=== PATIENT | male | born 1950 | race Caucasian/White ===

== ENCOUNTER 2017-05-17 16:22 | Inpatient (IN) | payer BC ==
[~2017-05-17] VITALS: Ht 188 cm; Wt 86.2 kg
[~2017-05-17 16:22] MED LIST: ATOR-24 PO; POTA1080 PO
[2017-05-17] MEDS ORDERED: ONDANSETRON INJ 2 MG/ML 2 ML VIAL IV STA ×2 (16:47→19:09)
[2017-05-17] MEDS ORDERED: SODIUM CHLORIDE 0.9% 1000ML 1,000 ML IV ONE (17:00)
[2017-05-17] MEDS: HYDROmorphone INJ 0.5 MG/0.5 ML SYR IV PRN ×3 (17:01→19:05)
--- NOTE | 2017-05-17 17:04 | EMERGENCY ROOM VISIT NOTE ---
History First contact with patient: 16:34 Chief Complaint: KIDNEY STONE Stated Complaint: KIDNEY STONE History of Present Illness The patient is a 67 year old male who presents to the Emergency Room with complaints of left flank pain that started today. The patient also notes the following associated symptoms, nausea and vomiting. This started today and is a 10/10. The patient has found no relieving factors. Tried oxycodone. History of kidney stones. Pt denies LOC, headache, fevers, chills, diaphoresis, visual changes, neck pain, chest pain, breathing difficulties, back pain, melena, hematochezia, urinary symptoms, numbness, weakness, lymphadenopathy, rash, or other complaints. Review of Systems See HPI for pertinent positives and negatives. A total of ten systems were reviewed and were otherwise negative. Past Medical/Surgical History Medical Problems: (1) Dyslipidemia Family History Cancer Diabetes mellitus Social History Smoking Status: Never Smoker Alcohol Use: occasionally Marital Status: Housing Status: lives with significant other Occupation Status: employed Current/Historical Medications Scheduled Atorvastatin (Lipitor), 40 MG PO DAILY Oxybutynin Chloride (Oxybutynin Chloride ER), 10 MG PO DIRECTED Potassium Citrate (Alkalinizer (Potassium Citrate ER), 1 TAB PO QID Physical Exam Vital Signs Date Time Temp Pulse Resp B/P (MAP) Pulse Ox O2 Delivery O2 Flow Rate FiO2 05/17/17 18:32 60 05/17/17 18:13 60 18 125/69 96 Room Air 05/17/17 16:27 36.5 88 19 137/80 97 Room Air Physical Exam GENERAL: Awake, alert, uncomfortable, in no distress HENT: Normocephalic, atraumatic. Oropharynx unremarkable. EYES: Normal conjunctiva. Sclera non-icteric. NECK: Supple. No nuchal rigidity. FROM. No JVD. RESPIRATORY: Clear to auscultation. CARDIAC: Regular rate, normal rhythm. Extremities warm and well perfused. Pulses equal. ABDOMEN: Soft, non-distended. Flank tenderness to palpation. No rebound or guarding. No masses. RECTAL: Deferred. MUSCULOSKELETAL: Chest examination reveals no tenderness. The back is symmetrical on inspection without obvious abnormality. There is no CVA tenderness to palpation. No joint edema. LOWER EXTREMITIES: Calves are equal size bilaterally and non-tender. No edema. No discoloration. NEURO: Normal sensorium. No sensory or motor deficits noted. SKIN: No rash or jaundice noted. Medical Decision & Procedures Laboratory Results 05/17/17 16:55 Red Blood Count 5.58, Mean Corpuscular Volume 85.3, Mean Corpuscular Hemoglobin 30.5, Mean Corpuscular Hemoglobin Concent 35.7, Mean Platelet Volume 10.0, Neutrophils (%) (Auto) 81.4, Lymphocytes (%) (Auto) 11.1, Monocytes (%) (Auto) 5.6, Eosinophils (%) (Auto) 1.3, Basophils (%) (Auto) 0.3, Neutrophils # (Auto) 7.53, Lymphocytes # (Auto) 1.03, Monocytes # (Auto) 0.52, Eosinophils # (Auto) 0.12, Basophils # (Auto) 0.03 05/17/17 16:55 Test 05/17/17 16:55 05/17/17 17:30 White Blood Count 9.26 K/uL (4.8-10.8) Red Blood Count 5.58 M/uL (4.7-6.1) Hemoglobin 17.0 g/dL (14.0-18.0) Hematocrit 47.6 % (42-52) Mean Corpuscular Volume 85.3 fL (80-100) Mean Corpuscular Hemoglobin 30.5 pg (25-34) Mean Corpuscular Hemoglobin Concent 35.7 g/dl (32-36) Platelet Count 190 K/uL (130-400) Mean Platelet Volume 10.0 fL (7.4-10.4) Neutrophils (%) (Auto) 81.4 % Lymphocytes (%) (Auto) 11.1 % Monocytes (%) (Auto) 5.6 % Eosinophils (%) (Auto) 1.3 % Basophils (%) (Auto) 0.3 % Neutrophils # (Auto) 7.53 K/uL (1.4-6.5) Lymphocytes # (Auto) 1.03 K/uL (1.2-3.4) Monocytes # (Auto) 0.52 K/uL (0.11-0.59) Eosinophils # (Auto) 0.12 K/uL (0-0.5) Basophils # (Auto) 0.03 K/uL (0-0.2) RDW Standard Deviation 42.2 fL (36.4-46.3) RDW Coefficient of Variation 13.5 % (11.5-14.5) Immature Granulocyte % (Auto) 0.3 % Immature Granulocyte # (Auto) 0.03 K/uL (0.00-0.02) Anion Gap 8.0 mmol/L (3-11) Est Creatinine Clear Calc Drug Dose 68.3 ml/min Estimated GFR () 68.7 Estimated GFR (Non- 59.3 BUN/Creatinine Ratio 10.9 (10-20) Calcium Level 9.2 mg/dl (8.5-10.1) Total Bilirubin 1.1 mg/dl (0.2-1) Direct Bilirubin mg/dl (0-0.2) Aspartate Amino Transf (AST/SGOT) U/L (15-37) Alanine Aminotransferase (ALT/SGPT) 35 U/L (12-78) Alkaline Phosphatase 111 U/L (45-117) Total Protein 8.0 gm/dl (6.4-8.2) Albumin 4.1 gm/dl (3.4-5.0) Lipase 191 U/L (73-393) Urine Color YELLOW Urine Appearance CLEAR (CLEAR) Urine pH >= 9.0 (4.5-7.5) Urine Specific [place] 1.012 (1.000-1.030) Urine Protein NEG (NEG) Urine Glucose (UA) NEG (NEG) Urine Ketones NEG (NEG) Urine Occult Blood 1+ (NEG) Urine Nitrite NEG (NEG) Urine Bilirubin NEG (NEG) Urine Urobilinogen NEG (NEG) Urine Leukocyte Esterase LARGE (NEG) Urine WBC (Auto) >30 /hpf (0-5) Urine RBC (Auto) 5-10 /hpf (0-4) Urine Hyaline Casts (Auto) 5-10 /lpf (0-5) Urine Epithelial Cells (Auto) 0-5 /lpf (0-5) Urine Bacteria (Auto) 4+ (NEG) Medications Administered Medications (Trade) Dose Ordered Sig/Lauren Route Start Time Stop Time Status Last Admin Dose Admin Sodium Chloride 1,000 ml @ 999 mls/hr Q1H1M ONCE IV 05/17/17 17:00 05/17/17 18:00 DC 05/17/17 17:01 999 MLS/HR Hydromorphone HCl (Dilaudid Inj) 0.5 mg Q30M PRN IV 05/17/17 17:00 05/31/17 16:59 05/17/17 19:05 0.5 MG Ondansetron HCl (Zofran Inj) 4 mg NOW STAT IV 05/17/17 16:47 05/17/17 16:54 DC 05/17/17 17:00 4 MG Piperacillin Sod/ Tazobactam Sod (Zosyn Iv) 4.5 gm NOW STAT IV 05/17/17 18:17 05/17/17 18:18 DC 05/17/17 19:05 4.5 GM Medical Decision Triage Nursing notes reviewed. The patient's presentation and history were concerning for flank pain. Etiologies such as renal colic, appendicitis, diverticulitis, mesenteric ischemia, aortic pathology, infections, inflammatory bowel disease, PUD, biliary pathology, UTI, as well as others were entertained. The patient was evaluated. He was uncomfortable. He was treated with IV Dilaudid and Zofran. CT imaging was performed. Blood work was performed. The patient unfortunate has a significant left sided kidney stone that will not pass. His urinalysis is very concerning for infection. He required 3 doses of Dilaudid and additional dose of Zofran. Consultation was made with Dr. Woodward of urology who plans to take the patient to the OR. I did consult with the [facility] hospitalist service and spoke to Liana Aguilera PA-C. The patient will be evaluated for further management. I did give the patient a dose of IV Zosyn. The patient was seen and examined with Dr. Davis, resident physician. We discussed the case and treatments ordered, reviewed the results, and determine the disposition. Please refer to the resident's note for additional details. I have been directly involved with the management and disposition as well as independently evaluated the patient as documented in this note. Medication Reconcilliation Current Medication List: was personally reviewed by me Blood Pressure Screening Blood pressure disposition: Elevated BP felt to be situational Impression Primary Impression: Ureterolithiasis Additional Impression: UTI (urinary tract infection) Departure Information Dispostion Being Evaluated By Hospitalist Referrals No Doctor, Assigned (PCP) Patient Instructions My [facility] Problem Qualifiers Additional Impression: UTI (urinary tract infection) Urinary tract infection type: site unspecified
[2017-05-17] MEDS ORDERED: DTRSR/10 PO (17:07)
[2017-05-17 17:10] LABS: BASO % 0.3 %; BASO ABS # 0.03 K/uL (0-0.2); EOS % 1.3 %; EOS ABS # 0.12 K/uL (0-0.5); HEMATOCRIT 47.6 % (42-52); IG# 0.03 K/uL (0.00-0.02); LYMPH % 11.1 %; LYMPH ABS # 1.03 K/uL (1.2-3.4); MEAN CELL VOLUME 85.3 fL (80-100); MEAN CORPUSCULAR HEMOGLOBIN 30.5 pg (25-34); MEAN CORPUSCULAR HGB CONC 35.7 g/dl (32-36); MONO % 5.6 %; MONO ABS # 0.52 K/uL (0.11-0.59); NEUT % 81.4 %; NEUT ABS # 7.53 K/uL (1.4-6.5); PLATELET COUNT 190 K/uL (130-400); RED CELL DISTRIBUTION WIDTH CV 13.5 % (11.5-14.5); RED CELL DISTRIBUTION WIDTH SD 42.2 fL (36.4-46.3); WHITE BLOOD COUNT 9.26 K/uL (4.8-10.8)
--- NOTE | 2017-05-17 17:22 | EMERGENCY ROOM VISIT NOTE ---
History First contact with patient: 16:34 Chief Complaint: KIDNEY STONE Stated Complaint: KIDNEY STONE History of Present Illness The patient is a 66 year old male who presents to the Emergency Room with complaints of left flank pain since 1230 today, took an oxycodone and did not help pain. Has a h/o kidney stones in 2012, prostatectomy in 2016, seen by urology regularly and is on potassium citrate for his stones. Also states he had a LT flank pain episode on Sunday, but after walking around for three hours, pain resolved. Denies fevers chills nausea diarrhea dysuria hematuria constipation. Review of Systems as above Past Medical/Surgical History Medical Problems: (1) Dyslipidemia Family History Cancer Diabetes mellitus Social History Smoking Status: Never Smoker Alcohol Use: occasionally Marital Status: Housing Status: lives with significant other Occupation Status: employed Current/Historical Medications Scheduled Atorvastatin (Lipitor), 40 MG PO DAILY Oxybutynin Chloride (Oxybutynin Chloride ER), 10 MG PO DIRECTED Potassium Citrate (Alkalinizer (Potassium Citrate ER), 1 TAB PO QID Physical Exam Vital Signs Date Time Temp Pulse Resp B/P (MAP) Pulse Ox O2 Delivery O2 Flow Rate FiO2 05/17/17 18:32 60 05/17/17 18:13 60 18 125/69 96 Room Air 05/17/17 16:27 36.5 88 19 137/80 97 Room Air Physical Exam as below General Appearance: WD/WN, + moderate distress (uncomfortable) Respiratory/Chest: lungs clear, normal breath sounds, no respiratory distress Cardiovascular: regular rate, rhythm, no gallop Abdomen / GI: soft, + pertinent finding (tender to palpation on left flank) Extremities: normal inspection, no pedal edema Neurologic/Psych: alert, normal mood/affect Medical Decision & Procedures Laboratory Results 05/17/17 16:55 Red Blood Count 5.58, Mean Corpuscular Volume 85.3, Mean Corpuscular Hemoglobin 30.5, Mean Corpuscular Hemoglobin Concent 35.7, Mean Platelet Volume 10.0, Neutrophils (%) (Auto) 81.4, Lymphocytes (%) (Auto) 11.1, Monocytes (%) (Auto) 5.6, Eosinophils (%) (Auto) 1.3, Basophils (%) (Auto) 0.3, Neutrophils # (Auto) 7.53, Lymphocytes # (Auto) 1.03, Monocytes # (Auto) 0.52, Eosinophils # (Auto) 0.12, Basophils # (Auto) 0.03 05/17/17 16:55 Test 05/17/17 16:55 05/17/17 17:30 White Blood Count 9.26 K/uL (4.8-10.8) Red Blood Count 5.58 M/uL (4.7-6.1) Hemoglobin 17.0 g/dL (14.0-18.0) Hematocrit 47.6 % (42-52) Mean Corpuscular Volume 85.3 fL (80-100) Mean Corpuscular Hemoglobin 30.5 pg (25-34) Mean Corpuscular Hemoglobin Concent 35.7 g/dl (32-36) Platelet Count 190 K/uL (130-400) Mean Platelet Volume 10.0 fL (7.4-10.4) Neutrophils (%) (Auto) 81.4 % Lymphocytes (%) (Auto) 11.1 % Monocytes (%) (Auto) 5.6 % Eosinophils (%) (Auto) 1.3 % Basophils (%) (Auto) 0.3 % Neutrophils # (Auto) 7.53 K/uL (1.4-6.5) Lymphocytes # (Auto) 1.03 K/uL (1.2-3.4) Monocytes # (Auto) 0.52 K/uL (0.11-0.59) Eosinophils # (Auto) 0.12 K/uL (0-0.5) Basophils # (Auto) 0.03 K/uL (0-0.2) RDW Standard Deviation 42.2 fL (36.4-46.3) RDW Coefficient of Variation 13.5 % (11.5-14.5) Immature Granulocyte % (Auto) 0.3 % Immature Granulocyte # (Auto) 0.03 K/uL (0.00-0.02) Anion Gap 8.0 mmol/L (3-11) Est Creatinine Clear Calc Drug Dose 68.3 ml/min Estimated GFR () 68.7 Estimated GFR (Non- 59.3 BUN/Creatinine Ratio 10.9 (10-20) Calcium Level 9.2 mg/dl (8.5-10.1) Total Bilirubin 1.1 mg/dl (0.2-1) Direct Bilirubin mg/dl (0-0.2) Aspartate Amino Transf (AST/SGOT) U/L (15-37) Alanine Aminotransferase (ALT/SGPT) 35 U/L (12-78) Alkaline Phosphatase 111 U/L (45-117) Total Protein 8.0 gm/dl (6.4-8.2) Albumin 4.1 gm/dl (3.4-5.0) Lipase 191 U/L (73-393) Urine Color YELLOW Urine Appearance CLEAR (CLEAR) Urine pH >= 9.0 (4.5-7.5) Urine Specific [place] 1.012 (1.000-1.030) Urine Protein NEG (NEG) Urine Glucose (UA) NEG (NEG) Urine Ketones NEG (NEG) Urine Occult Blood 1+ (NEG) Urine Nitrite NEG (NEG) Urine Bilirubin NEG (NEG) Urine Urobilinogen NEG (NEG) Urine Leukocyte Esterase LARGE (NEG) Urine WBC (Auto) >30 /hpf (0-5) Urine RBC (Auto) 5-10 /hpf (0-4) Urine Hyaline Casts (Auto) 5-10 /lpf (0-5) Urine Epithelial Cells (Auto) 0-5 /lpf (0-5) Urine Bacteria (Auto) 4+ (NEG) Medications Administered Medications (Trade) Dose Ordered Sig/Lauren Route Start Time Stop Time Status Last Admin Dose Admin Sodium Chloride 1,000 ml @ 999 mls/hr Q1H1M ONCE IV 05/17/17 17:00 05/17/17 18:00 DC 05/17/17 17:01 999 MLS/HR Hydromorphone HCl (Dilaudid Inj) 0.5 mg Q30M PRN IV 05/17/17 17:00 05/31/17 16:59 05/17/17 19:05 0.5 MG Ondansetron HCl (Zofran Inj) 4 mg NOW STAT IV 05/17/17 16:47 05/17/17 16:54 DC 05/17/17 17:00 4 MG Piperacillin Sod/ Tazobactam Sod (Zosyn Iv) 4.5 gm NOW STAT IV 05/17/17 18:17 05/17/17 18:18 DC 05/17/17 19:05 4.5 GM ED Course 1635 resident reviewed records, assessed patient [address] stone study, dilaudid .5mcg IV q30m prn pain, zofran 4mg IV, 1L NSS @ 999ml/hr. 1700 attending saw pt, discussed plan. 1750 UA + leuks. Dec made to admit. Pt is Brandan. [address] Woodward-she says she will stent tonight at 2130 (8 hours post last meal), says she will see him at about 2000 to get consent. Medical Decision The patient is a 66 year old male who presents to the Emergency Room with complaints of left flank pain since 1230 today, took an oxycodone and did not help pain. Has a h/o kidney stones in 2012, prostatectomy in 2016, seen by urology regularly and is on potassium citrate for his stones. Also states he had a LT flank pain episode on Sunday, but after walking around for three hours, pain resolved. CT scan confirms 10x10 left sided kidney stone, UA is concerning for infection. Required [address] Woodward consulted, she would like to stent him tonight given status. IV zosyn started here. Admitted for further work up. Ddx: gastritis, nephrolithiasis, splenic rupture, diverticulitis Impression Primary Impression: Nephrolithiasis Additional Impression: UTI (urinary tract infection) Departure Information Dispostion Admitted as an inpatient Patient Instructions My [facility] Resident Tracking Resident Involvement: Resident Care Provided Care Provided: Adult ED Problem Qualifiers Additional Impression: UTI (urinary tract infection) Urinary tract infection type: site unspecified
[2017-05-17 17:49] LABS: ALBUMIN 4.1 gm/dl (3.4-5.0); CALCIUM 9.2 mg/dl (8.5-10.1); CREATININE 1.27 mg/dl (0.60-1.40)
--- NOTE | 2017-05-17 18:02 | DIAGNOSTIC IMAGING REPORT ---
CT OF THE ABDOMEN AND PELVIS WITHOUT CONTRAST, STONE PROTOCOL CLINICAL HISTORY: Left flank pain. COMPARISON STUDY: CT of the abdomen and pelvis and right upper quadrant ultrasound January 11, 2016. TECHNIQUE: Helical axial images of the abdomen and pelvis were obtained without IV or oral contrast according to renal stone protocol. A dose lowering technique was utilized adhering to the principles of ALARA. FINDINGS: A 1 x 1 x 0.6 cm left ureteropelvic junction irregular calculus results in mild left hydronephrosis. There is a 2 mm right renal calculus. There are no right ureteral calculi. There is moderate left perinephric infiltration. A 3.5 cm water attenuation lesion arising from the upper pole of the right kidney has moderately increased in size since CT of January 11, 2016. This is suboptimally assessed on this unenhanced exam. There is no biliary ductal dilatation status post cholecystectomy. Evaluation of the abdomen and pelvis is suboptimal as unenhanced exam. The spleen, adrenal glands and pancreas are unremarkable. There is no evidence for a bowel obstruction. The appendix is normal. No abdominal or pelvic lymphadenopathy is present. Note is made of a water attenuation 6.7 x 3.8 cm abnormality along the right anterior aspect of the bladder with mass effect upon the bladder. This is extraperitoneal in location, within the space of Retzius. This was not present on CT of January 11, 2016. No suspicious osseous lesions are present. IMPRESSION: 1. 1 x 1 x 0.6 cm left ureteropelvic junction calculus which results in mild left hydronephrosis and moderate left perinephric infiltration. 2. 2 mm right renal calculus. 3. Status post interval prostatectomy. 6.7 x 3.8 cm water attenuation abnormality along the right anterior aspect of the bladder within the space of Retzius with mass effect upon the bladder. This is nonspecific but likely postsurgical and this may reflect a seroma or atypical location of a lymphocele. 4. Increase in size of a 3.5 cm lesion arising from the upper pole of the right kidney. This lesion is suboptimally assessed on this unenhanced exam although the appearance favors a cyst with possible thin septation. This can be assessed on subsequent exams. Electronically signed by: Terrence Verdugo M.D. 05/17/2017 6:01 PM Dictated Date/Time: 05/17/2017 5:48 PM
[2017-05-17] MEDS ORDERED: PIPERACILLIN/TAZOBACTAM 4.5 GM/100ML D5W IV STA (18:17)
--- NOTE | 2017-05-17 19:33 | History and Physical ---
History & Physical Date & Time of Service: May 17, 2017 at 19:33 Chief Complaint: Kidney Stone Primary Care Physician: Isiah Thomas III, M.D. History of Present Illness Source: patient, clinic records, hospital records This is a 66yo M with a PMH of prostate cancer (s/p prostatectomy in June 2016) , kidney stones and HLD who presents with L flank pain x 1 day. Patient states that he notices some suprapubic discomfort over the weekend that it resolved within an hour. Yesterday, patient endorses sudden onset 10/10 sharp pain in his L flank with associated nausea. One episode of dry heaving today. Tried taking oxycodone once but pain was not alleviated. Endorses frequent urination but denies hematuria, pyuria, oliguria. Has experienced increased urination ever since prostate was removed in June at [facility] in [place]. Follows with Dr. Woodward for urology. Denies fever, chills, lightheadedness, headache, visual changes, chest pain, SOB, diarrhea, constipation, LE swelling. Past Medical/Surgical History Medical Problems: (1) Dyslipidemia Status: Chronic (2) Prostate cancer Permanent Comment: S/p prostatectomy in June 2016 at [facility] Status: Chronic Family History Cancer Diabetes mellitus Social History Smoking Status: Never Smoker Alcohol Use: occasionally Marital Status: Housing status: lives alone Occupational Status: employed Immunizations History of Influenza Vaccine: Yes History of Tetanus Vaccine?: Yes History of Pneumococcal: No History of Hepatitis B Vaccine: Unknown Multi-Drug Resistant Organisms History of MDRO: No Allergies Coded Allergies: Peanut (Verified Allergy, Unknown, Migraines, 05/17/17) Home Medications Scheduled Atorvastatin (Lipitor), 40 MG PO DAILY Oxybutynin Chloride (Oxybutynin Chloride ER), 10 MG PO DIRECTED Potassium Citrate (Alkalinizer (Potassium Citrate ER), 1 TAB PO QID Review of Systems Ten systems reviewed and negative except as noted in the HPI. Physical Exam Vital Signs Date Time Temp Pulse Resp B/P (MAP) Pulse Ox O2 Delivery O2 Flow Rate FiO2 05/17/17 18:32 60 05/17/17 18:13 60 18 125/69 96 Room Air 05/17/17 16:27 36.5 88 19 137/80 97 Room Air General Appearance: + moderate distress (Severe pain with movement. ) Head: normocephalic, atraumatic Eyes: normal inspection, PERRL, sclerae normal ENT: normal ENT inspection, hearing grossly normal, pharynx normal Neck: supple, thyroid normal, trachea midline Respiratory/Chest: chest non-tender, lungs clear, normal breath sounds, no respiratory distress, no accessory muscle use Cardiovascular: regular rate, rhythm, no murmur, normal peripheral pulses Abdomen/GI: soft, + tenderness (TTP of suprapubic area, L flank ) Back: + left CVA tenderness Extremities/Musculoskelatal: normal inspection, no calf tenderness, no pedal edema Neurologic/Psych: no motor/sensory deficits, alert, normal mood/affect, oriented x 3 Skin: normal color, warm/dry Diagnostics Laboratory Results Results Past 24 Hours Test 05/17/17 16:55 05/17/17 17:30 Range/Units White Blood Count 9.26 4.8-10.8 K/uL Red Blood Count 5.58 4.7-6.1 M/uL Hemoglobin 17.0 14.0-18.0 g/dL Hematocrit 47.6 42-52 % Mean Corpuscular Volume 85.3 80-100 fL Mean Corpuscular Hemoglobin 30.5 25-34 pg Mean Corpuscular Hemoglobin Concent 35.7 32-36 g/dl Platelet Count 190 130-400 K/uL Mean Platelet Volume 10.0 7.4-10.4 fL Neutrophils (%) (Auto) 81.4 % Lymphocytes (%) (Auto) 11.1 % Monocytes (%) (Auto) 5.6 % Eosinophils (%) (Auto) 1.3 % Basophils (%) (Auto) 0.3 % Neutrophils # (Auto) 7.53 1.4-6.5 K/uL Lymphocytes # (Auto) 1.03 1.2-3.4 K/uL Monocytes # (Auto) 0.52 0.11-0.59 K/uL Eosinophils # (Auto) 0.12 0-0.5 K/uL Basophils # (Auto) 0.03 0-0.2 K/uL RDW Standard Deviation 42.2 36.4-46.3 fL RDW Coefficient of Variation 13.5 11.5-14.5 % Immature Granulocyte % (Auto) 0.3 % Immature Granulocyte # (Auto) 0.03 0.00-0.02 K/uL Sodium Level 137 136-145 mmol/L Potassium Level 3.5-5.1 mmol/L Chloride Level 105 98-107 mmol/L Carbon Dioxide Level 24 21-32 mmol/L Anion Gap 8.0 3-11 mmol/L Blood Urea Nitrogen 14 7-18 mg/dl Creatinine 1.27 0.60-1.40 mg/dl Est Creatinine Clear Calc Drug Dose 68.3 ml/min Estimated GFR () 68.7 Estimated GFR (Non- 59.3 BUN/Creatinine Ratio 10.9 10-20 Random Glucose 126 70-99 mg/dl Calcium Level 9.2 8.5-10.1 mg/dl Total Bilirubin 1.1 0.2-1 mg/dl Direct Bilirubin 0-0.2 mg/dl Aspartate Amino Transf (AST/SGOT) 15-37 U/L Alanine Aminotransferase (ALT/SGPT) 35 12-78 U/L Alkaline Phosphatase 111 45-117 U/L Total Protein 8.0 6.4-8.2 gm/dl Albumin 4.1 3.4-5.0 gm/dl Lipase 191 73-393 U/L Urine Color YELLOW Urine Appearance CLEAR CLEAR Urine pH >= 9.0 4.5-7.5 Urine Specific [place] 1.012 1.000-1.030 Urine Protein NEG NEG Urine Glucose (UA) NEG NEG Urine Ketones NEG NEG Urine Occult Blood 1+ NEG Urine Nitrite NEG NEG Urine Bilirubin NEG NEG Urine Urobilinogen NEG NEG Urine Leukocyte Esterase LARGE NEG Urine WBC (Auto) >30 0-5 /hpf Urine RBC (Auto) 5-10 0-4 /hpf Urine Hyaline Casts (Auto) 5-10 0-5 /lpf Urine Epithelial Cells (Auto) 0-5 0-5 /lpf Urine Bacteria (Auto) 4+ NEG Microbiology Results 05/17/17 Urine Culture, Received Pending Diagnostic Radiology CT abd/pelvis: 1. 1 x 1 x 0.6 cm left ureteropelvic junction calculus which results in mild left hydronephrosis and moderate left perinephric infiltration. 2. 2 mm right renal calculus. 3. Status post interval prostatectomy. 6.7 x 3.8 cm water attenuation abnormality along the right anterior aspect of the bladder within the space of [place] with mass effect upon the bladder. This is nonspecific but likely postsurgical and this may reflect a seroma or atypical location of a lymphocele. 4. Increase in size of a 3.5 cm lesion arising from the upper pole of the right kidney. This lesion is suboptimally assessed on this unenhanced exam although the appearance favors a cyst with possible thin septation. This can be assessed on subsequent exams. Normal EKG Impression Assessment and Plan This is a 66yo M with a PMH of prostate cancer (s/p prostatectomy in June 2016) , kidney stones and HLD who presents with L flank pain x 1 day. Complicated UTI 2/2 obstructing left ureteropelvic stone: -CT abd/pelvis with presence of 1x1cm obstructive stone with mild hydronephrosis -Moderate left perinephric infiltration -Severe pain but afebrile, no leukocytosis -UA with presence of infection -Treating empirically with Zosyn -Urine culture pending -Urology consulted and aware -Planning for stenting tonight -Pain control, anti-emetics -NPO HLD: -Cont statin DVT Ppx: SCDs Code status: FULL PCP: William Dispo: Admitted to telemetry. Discharge home once medically appropriate. Patient seen in collaboration with Dr. Perez. Please see addendum. Level of Care Med/Surg Resuscitation Status FULL RESUSCITATION VTE Prophylaxis Given or contraindicated: SCD's Assessment/Plan IM ATTENDING : Patient seen and examined. History obtained from patient and records Preceding documentation by Ms. Liana Aguilera PA-C reviewed. FINAL ASSESSMENT AND PLAN as follows: 1. Complicated urinary tract infection, obstructive uropathy. No sepsis. 2. History of prostate cancer status post surgery. GMF Follow urine cultures, IV ceftriaxone. Urology consult RE obstructive uropathy. (ER provider already in touch with Dr. Woodward who will do urgent procedure tonight.) DVT prophylaxis. Lovenox subQ. Full code.
[2017-05-17] MEDS ORDERED: LORAZEPAM 2 MG/ML 1 ML VIAL IV PRN (20:15)
[2017-05-17] MEDS ORDERED: TRAMADOL HCL 50 MG TAB PO PRN (20:15)
[2017-05-17] MEDS ORDERED: ACETAMINOPHEN 325 MG TAB PO PRN (20:15)
[2017-05-17] MEDS ORDERED: MoRPHine SULFATE 4 MG/ML 1 ML CARP\\VIAL IV PRN (20:15)
[2017-05-17] MEDS ORDERED: PROCHLORPERAZINE INJ 5 MG in SYRINGE 4 ML IV PRN (20:15)
[2017-05-17] MEDS ORDERED: HYDROmorphone INJ 0.5 MG/0.5 ML SYR ONE (20:20)
[2017-05-17] MEDS ORDERED: FENTANYL CITRATE INJ 50 MCG/1 ML 2 ML VIAL ONE ×2 (20:38→21:21)
[2017-05-17] MEDS ORDERED: MIDAZOLAM HCL 1 MG/ML 2ML VIAL ONE (20:38)
--- NOTE | 2017-05-17 20:55 | Urology Consultation ---
History General Date of Service: May 17, 2017. Chief Complaint: left ureteral stone Primary Care Physician: Isiah Thomas III, M.D. Pt seen a urologist before?: Yes If yes, why?: prostate cancer and kidney stones. History of Present Illness I am asked by Dr Vu to evaluate and treat patient for left ureteral stone. he had left flank pain which became severe. he presented to ER and ct shows a 10mm left upj stone and hydronephrosis and he has lab findings of uti. he CT also suggests a lot of inflammation around the stone so it might be infected. He is not fevering but is in a lot of pain from colic. He has had uti in past including a klebsiella uti in spring 2016. Imaging Imaging: CT Laboratory Results Past 24 Hours Test 05/17/17 16:55 05/17/17 17:30 05/17/17 19:51 Range/Units White Blood Count 9.26 4.8-10.8 K/uL Red Blood Count 5.58 4.7-6.1 M/uL Hemoglobin 17.0 14.0-18.0 g/dL Hematocrit 47.6 42-52 % Mean Corpuscular Volume 85.3 80-100 fL Mean Corpuscular Hemoglobin 30.5 25-34 pg Mean Corpuscular Hemoglobin Concent 35.7 32-36 g/dl Platelet Count 190 130-400 K/uL Mean Platelet Volume 10.0 7.4-10.4 fL Neutrophils (%) (Auto) 81.4 % Lymphocytes (%) (Auto) 11.1 % Monocytes (%) (Auto) 5.6 % Eosinophils (%) (Auto) 1.3 % Basophils (%) (Auto) 0.3 % Neutrophils # (Auto) 7.53 1.4-6.5 K/uL Lymphocytes # (Auto) 1.03 1.2-3.4 K/uL Monocytes # (Auto) 0.52 0.11-0.59 K/uL Eosinophils # (Auto) 0.12 0-0.5 K/uL Basophils # (Auto) 0.03 0-0.2 K/uL RDW Standard Deviation 42.2 36.4-46.3 fL RDW Coefficient of Variation 13.5 11.5-14.5 % Immature Granulocyte % (Auto) 0.3 % Immature Granulocyte # (Auto) 0.03 0.00-0.02 K/uL Sodium Level 137 136-145 mmol/L Potassium Level 4.0 3.5-5.1 mmol/L Chloride Level 105 98-107 mmol/L Carbon Dioxide Level 24 21-32 mmol/L Anion Gap 8.0 3-11 mmol/L Blood Urea Nitrogen 14 7-18 mg/dl Creatinine 1.27 0.60-1.40 mg/dl Est Creatinine Clear Calc Drug Dose 68.3 ml/min Estimated GFR () 68.7 Estimated GFR (Non- 59.3 BUN/Creatinine Ratio 10.9 10-20 Random Glucose 126 70-99 mg/dl Calcium Level 9.2 8.5-10.1 mg/dl Total Bilirubin 1.1 0.2-1 mg/dl Direct Bilirubin 0-0.2 mg/dl Aspartate Amino Transf (AST/SGOT) 15-37 U/L Alanine Aminotransferase (ALT/SGPT) 35 12-78 U/L Alkaline Phosphatase 111 45-117 U/L Total Protein 8.0 6.4-8.2 gm/dl Albumin 4.1 3.4-5.0 gm/dl Lipase 191 73-393 U/L Urine Color YELLOW Urine Appearance CLEAR CLEAR Urine pH >= 9.0 4.5-7.5 Urine Specific [place] 1.012 1.000-1.030 Urine Protein NEG NEG Urine Glucose (UA) NEG NEG Urine Ketones NEG NEG Urine Occult Blood 1+ NEG Urine Nitrite NEG NEG Urine Bilirubin NEG NEG Urine Urobilinogen NEG NEG Urine Leukocyte Esterase LARGE NEG Urine WBC (Auto) >30 0-5 /hpf Urine RBC (Auto) 5-10 0-4 /hpf Urine Hyaline Casts (Auto) 5-10 0-5 /lpf Urine Epithelial Cells (Auto) 0-5 0-5 /lpf Urine Bacteria (Auto) 4+ NEG Magnesium Level 1.8 1.8-2.4 mg/dl Microbiology Results 05/17/17 Urine Culture, Received Pending Labs were reviewed and are within normal limits unless listed below. Labs are available in the chart and at [facility] Problem List Medical Problems: (1) Nephrolithiasis Status: Acute (2) Right upper quadrant abdominal pain Status: Acute (3) Ureterolithiasis Status: Acute (4) UTI (urinary tract infection) Status: Acute Past History no pertinent history, high cholesterol Pt had a problem w anesthesia?: No Past Surgical History: no surgical history, other (robotic radiacl prostatectomy ) Family History Cancer Diabetes mellitus Social History Hx Tobacco Use In Past Year?: No Smoking: non-smoker Alcohol: never Marital status: Housing status: lives with family Occupation status: employed Immunizations History of Influenza Vaccine: Yes History of Tetanus Vaccine?: Yes History of Pneumococcal: No History of Hepatitis B Vaccine: Unknown History of MDRO No Allergies Coded Allergies: Peanut (Verified Allergy, Unknown, Migraines, 05/17/17) Medications Home Medications: Home Meds and Scripts Medications Dose Route/Sig Max Daily Dose Days Date Category Oxybutynin Chloride ER (Oxybutynin Chloride) 10 Mg Tabcr 10 Mg PO DIRECTED 05/17/17 Reported Potassium Citrate ER (Potassium Citrate (Alkalinizer) 1,080 Mg Tab 1 Tab PO QID 90 02/18/16 Reported Lipitor (Atorvastatin Calcium) 40 Mg Tab 40 Mg PO DAILY 01/11/16 Reported Inpatient Medications: Current Inpatient Medications Medications (Trade) Dose Ordered Sig/Lauren Route Start Time Stop Time Status Last Admin Dose Admin Enoxaparin Sodium (Lovenox Inj) 40 mg Q24H SQ 05/17/17 20:15 06/16/17 20:14 UNV Acetaminophen (Tylenol Tab) 650 mg Q4H PRN PO 05/17/17 20:15 06/16/17 20:14 Ceftriaxone Sodium 1 gm/ Dextrose 50 ml @ 100 mls/hr Q24H IV 05/18/17 08:00 05/28/17 07:59 UNV Tramadol HCl (Ultram Tab) not relieved by tylenol @ Q6H PRN PO 05/17/17 20:15 06/16/17 20:14 Morphine Sulfate (MoRPHine SULFATE INJ) 4 mg Q3H PRN IV 05/17/17 20:15 05/31/17 20:14 Lorazepam (Ativan Inj) 0.5 mg Q4H PRN IV 05/17/17 20:15 06/16/17 20:14 UNV Sodium Chloride 1,000 ml @ 100 mls/hr Q10H IV 05/17/17 20:15 06/16/17 20:14 UNV Prochlorperazine Edisylate 5 mg/ Syringe 5 ml @ 5 mls/min Q6H PRN IV 05/17/17 20:15 06/16/17 20:14 Atorvastatin Calcium (Lipitor Tab) 40 mg DAILY PO 05/18/17 09:00 06/17/17 08:59 UNV Non-Formulary Medication (Oxybutynin Chloride (Oxybutynin Chloride ER)) 10 mg DIRECTED PO 05/17/17 20:15 06/16/17 20:14 UNV Review of Systems Review of Systems Constitutional: + chills, No fever Endocrine: + too cold, + tired/sluggish, No excessive thirst, No too hot Gastrointestinal: + abdominal pain, + indigestion, + nausea, No constipation, No diarrhea Cardiovascular: No chest pain, No palpitations, No swelling ankles/feet Respiratory: No shortness of breath, No chronic cough Male : + frequent urination, + leaking urine, + infections, + kidney stones, + nocturia more than once/night Physical Exam Vital Signs: Vital Signs Past 12 Hours Date Time Temp Pulse Resp B/P (MAP) Pulse Ox O2 Delivery O2 Flow Rate FiO2 05/17/17 20:43 69 18 142/74 97 05/17/17 20:00 69 18 142/74 97 Room Air 05/17/17 18:32 60 05/17/17 18:13 60 18 125/69 96 Room Air 05/17/17 16:27 36.5 88 19 137/80 97 Room Air Physical Exam: General Appearance: + thin Eyes: bilateral eyes normal inspection ENT: hearing grossly normal Neck: supple, no adenopathy, no JVD, trachea midline Respiratory/Chest: normal breath sounds, no respiratory distress, no accessory muscle use Cardiovascular: no edema Extremities: non-tender, no pedal edema, no calf tenderness, normal capillary refill Neurologic/Psychiatric: alert, normal mood/affect, oriented x 3 Skin: normal color, warm/dry, no rash Lymphatic: no adenopathy Assessment & Plan Assessment & Plan Imaging: CT obstructing left proximal ureteral stone suspect also has infected urine plan urgent left stent tonight I described procedure and he signed consent We will remove stone next week as day surgery he has zosyn in the ER. knee high scds
[2017-05-17 20:59] LABS: PTT PATIENT 26.9 SECONDS (21.0-31.0)
[2017-05-17] MEDS ORDERED: EpHEDrine SULFATE INJ 50 MG/ML AMP IV PRN (21:00)
[2017-05-17] MEDS ORDERED: FENTANYL CITRATE INJ 50 MCG/1 ML 2 ML VIAL IV PRN (21:00)
[2017-05-17] MEDS ORDERED: PROMETHAZINE HCL INJ 12.5 MG in SODIUM CHLORIDE 0.9% 50ML 50 ML IV PRN (21:00)
[2017-05-17] MEDS ORDERED: ATROPINE SULFATE 0.1 MG/ML 5ML SYR IV PRN (21:00)
[2017-05-17] MEDS ORDERED: LORAZEPAM INJ 0.5 MG in SYRINGE 0.75 ML IV PRN (21:30)
[2017-05-17] MEDS ORDERED: BELLADONNA/OPIUM SUPP 60 MG SUPP PR ONE (21:31)
[2017-05-17] MEDS ORDERED: DEXAMETHASONE SOD INJ 4 MG/ML VIAL ONE (21:32)
[2017-05-17] MEDS ORDERED: PROPOFOL IV EMULSION 10 MG/ML 20 ML VIAL IV ONE (21:32)
[2017-05-17] MEDS ORDERED: ONDANSETRON INJ 2 MG/ML 2 ML VIAL ONE (21:32)
--- NOTE | 2017-05-17 21:40 | [facility] Operative Report ---
Operative Report Operative Date May 17, 2017. Pre-Operative Diagnosis left ureteral stone with hydronephrosis and uti Post-Operative Diagnosis same Procedure(s) Performed cysto left stent placement Surgeon teena Buyer Broker Surgeon(s) none Estimated Blood Loss 0mL Findings radio-opaque left upj stone Fluids 250mL Specimens none Drains 6 fr 26 centimeter double j stent Anesthesia Type MAC Complication(s) none Disposition yes Surgical ICU Indications large 10mm obstructing left upj stone with UTI. Description of Procedure Patient was sedated and placed in lithotomy position. His genitals were prepped and draped in sterile fashion. Time out held with team. I placed a 21 fr rigid cystoscope to bladder. The urethra is unremarkable. The prostate is surgically absent. The UOs are close to bladder neck. I placed a road runner wire up left ureter and it pushed the stone back into the kidney. I placed a 26 centimeter 6 Fr double J stent easily. There is brisk high pressure and cloudy efflux after placement. I left bladder empty and concluded case. I placed a belladonna and opium suppository for post-op pain. He transferred to recovery (ICU at night) under my escort, in stable condition. Plan: observe in hospital until urine culture finalized Pyridium for dysuria x 3 days prn flomax daily for 2 weeks oral pain meds as needed iv zosyn until culture resulted ASA 2e dirty case 12 seconds fluoro zosyn antibiotic in ER 2 hours ago I attest to the content of the Intraoperative Record and any orders documented therein. Any exceptions are noted below.
--- NOTE | 2017-05-17 21:52 | DIAGNOSTIC IMAGING REPORT ---
KUB CLINICAL HISTORY: CYSTO COMPARISON STUDY: CT of the abdomen and pelvis performed earlier today. Fluoroscopy time: 12 seconds. FINDINGS: A single fluoroscopic image was obtained during a left-sided retrograde exam with stent insertion. A left ureteral stent is noted. Several radiodensities are noted, one of which likely reflects the left-sided calculus shown on prior CT. IMPRESSION: Fluoroscopic image from left retrograde exam with left ureteral stent insertion. Electronically signed by: Terrence Verdugo M.D. 05/17/2017 9:51 PM Dictated Date/Time: 05/17/2017 9:49 PM
--- NOTE | 2017-05-17 22:10 | Anesthesiology Progress Note ---
Anesthesia Post Op Note Date & Time May 17, 2017 at 22:10 Vital Signs Pain Intensity: 0 Vital Signs Past 12 Hours Date Time Temp Pulse Resp B/P (MAP) Pulse Ox O2 Delivery O2 Flow Rate FiO2 05/17/17 22:00 36.5 104 16 125/81 94 Room Air 05/17/17 21:50 106 16 126/70 95 Room Air 05/17/17 21:43 36.6 113 16 127/73 93 Room Air 05/17/17 21:02 36.5 79 16 132/80 (97) 97 Room Air 05/17/17 20:43 69 18 142/74 97 05/17/17 20:00 69 18 142/74 97 Room Air 05/17/17 18:32 60 05/17/17 18:13 60 18 125/69 96 Room Air 05/17/17 16:27 36.5 88 19 137/80 97 Room Air Notes Mental Status: alert / awake / arousable, participated in evaluation Pt Amnestic to Procedure: Yes Nausea / Vomiting: adequately controlled Pain: adequately controlled Airway Patency, RR, SpO2: stable & adequate BP & HR: stable & adequate Hydration State: stable & adequate Anesthetic Complications: no major complications apparent
[2017-05-17] MEDS ORDERED: PHENAZOPYRIDINE HCL 200 MG TAB PO PRN (22:15)
[2017-05-17 22:26] VITALS: BP 120/61; PULSE 103; TEMP 37.1; Ht 188 cm; Wt 86.2 kg
[2017-05-17 22:40] VITALS: BP 112/68; PULSE 100; TEMP 36.4; O2SAT 92
[2017-05-17 23:10] VITALS: BP 123/76; PULSE 91; TEMP 36.8; O2SAT 91
[2017-05-17] MEDS: ENOXAPARIN 40 MG/0.4 ML SYR SQ SCH (23:25)
[2017-05-18] VITALS (10 sets, daily range): BP systolic 107–126; BP diastolic 62–75; PULSE 71–87; TEMP 36.4–37; O2SAT 91–95
[2017-05-18] MEDS: SODIUM CHLORIDE 0.9% 1000ML 1,000 ML IV SCH ×2 (01:03→04:56)
--- NOTE | 2017-05-18 01:25 | HISTORY & PHYSICAL EXAMINATION ---
DATE OF ADMISSION: 05/17/2017 IM ATTENDING : Patient seen and examined. History obtained from patient and records Preceding documentation by Ms. Liana Aguilera PA-C reviewed. FINAL ASSESSMENT AND PLAN as follows: 1. Complicated urinary tract infection, obstructive uropathy. No sepsis. 2. History of prostate cancer status post surgery. GMF Follow urine cultures, IV ceftriaxone. Urology consult RE obstructive uropathy. (ER provider already in touch with Dr. Woodward who will do urgent procedure tonight.) DVT prophylaxis. Lovenox subQ. Full code. MTDD
[2017-05-18] MEDS ORDERED: NURSING DECISION MEDICATION ORDER SCH (02:15)
[2017-05-18] MEDS ORDERED: OXYBUTYNIN CHLORIDE 5 MG TABCR PO PRN (02:30)
[2017-05-18 05:57] LABS: BASO % 0.1 %; BASO ABS # 0.01 K/uL (0-0.2); HEMATOCRIT 45.2 % (42-52); HEMOGLOBIN 15.8 g/dL (14.0-18.0); IG# 0.03 K/uL (0.00-0.02); LYMPH % 5.8 %; LYMPH ABS # 0.69 K/uL (1.2-3.4); MEAN CELL VOLUME 86.3 fL (80-100); MEAN CORPUSCULAR HEMOGLOBIN 30.2 pg (25-34); MEAN PLATELET VOLUME 10.2 fL (7.4-10.4); MONO % 3.4 %; MONO ABS # 0.41 K/uL (0.11-0.59); NEUT % 90.4 %; NEUT ABS # 10.82 K/uL (1.4-6.5); PLATELET COUNT 188 K/uL (130-400); RED CELL DISTRIBUTION WIDTH CV 13.7 % (11.5-14.5); RED CELL DISTRIBUTION WIDTH SD 42.8 fL (36.4-46.3); WHITE BLOOD COUNT 11.96 K/uL (4.8-10.8)
[2017-05-18 06:27] LABS: CALCIUM 8.4 mg/dl (8.5-10.1); CREATININE 1.18 mg/dl (0.60-1.40); POTASSIUM 4.4 mmol/L (3.5-5.1)
[2017-05-18] MEDS: CEFTRIAXONE SOD INJ 1 GM in DEXTROSE 5% ADD-VANTAGE 50ML 50 ML IV SCH (08:00)
[2017-05-18] MEDS: ATORVASTATIN 40 MG TAB PO SCH (09:05)
--- NOTE | 2017-05-18 15:18 | Progress Note ---
Internal Med Progress Note Date of Service: May 18, 2017. Provider Documentation: SUBJECTIVE: resting comfortably left flank pain has much improved afebrile no nausea no sob has some hematuria after procedure OBJECTIVE: Vital Signs-as noted below Exam: General-alert and oriented. Not in distress ENT-Normal hearing Neck-no neck masses Lungs-cta b/l no wheezing or crackles Heart-S1 and S2 heard regular rate and rhythm, no murmurs Abdomen-soft bowel sounds present no discomfort no distension Extremities-no edema no erythema Neuro-alert and awake moves extremities Lab data as noted below. ASSESSMENT & PLAN: This is a 66yo M with a PMH of prostate cancer (s/p prostatectomy in June 2016) , kidney stones and HLD who presents with L flank pain x 1 day. Complicated UTI 2/2 obstructing left ureteropelvic stone: CT abd/pelvis with presence of 1x1cm obstructive stone with mild hydronephrosis With moderate left perinephric infiltration on Rocephin on flomax s/p cystoscopy and stent placement cx growing gm negative bacill f/u with urology HLD: on statin DVT Ppx: SCDs Code status: FULL PCP: [facility] [place] Dispo:possible d/c in am Vital Signs: Date Time Temp Pulse Resp B/P (MAP) Pulse Ox O2 Delivery O2 Flow Rate FiO2 05/18/17 11:47 36.8 82 14 110/72 (85) 95 Room Air 05/18/17 08:50 92 Room Air 05/18/17 07:58 36.4 76 16 108/68 (81) 92 Room Air 05/18/17 07:35 Room Air 05/18/17 03:55 36.8 78 16 110/67 (81) 94 Room Air 05/18/17 01:10 36.8 87 16 119/73 (88) 94 Room Air 05/18/17 00:10 36.5 71 16 126/75 (92) 91 Room Air 05/17/17 23:30 Room Air 05/17/17 23:10 36.8 91 16 123/76 (92) 91 Room Air 05/17/17 22:40 36.4 100 16 112/68 (83) 92 Room Air 05/17/17 22:39 Room Air 05/17/17 22:26 37.1 103 16 120/61 Room Air 05/17/17 22:10 Room Air 05/17/17 22:00 36.5 104 16 125/81 94 Room Air 05/17/17 21:50 106 16 126/70 95 Room Air 05/17/17 21:43 36.6 113 16 127/73 93 Room Air 05/17/17 21:02 36.5 79 16 132/80 (97) 97 Room Air 05/17/17 20:43 69 18 142/74 97 05/17/17 20:00 69 18 142/74 97 Room Air 05/17/17 18:32 60 05/17/17 18:13 60 18 125/69 96 Room Air 05/17/17 16:27 36.5 88 19 137/80 97 Room Air Lab Results: Results Past 24 Hours Test 05/17/17 16:55 05/17/17 17:30 05/17/17 19:51 05/18/17 05:23 Range/Units White Blood Count 9.26 11.96 4.8-10.8 K/uL Red Blood Count 5.58 5.24 4.7-6.1 M/uL Hemoglobin 17.0 15.8 14.0-18.0 g/dL Hematocrit 47.6 45.2 42-52 % Mean Corpuscular Volume 85.3 86.3 80-100 fL Mean Corpuscular Hemoglobin 30.5 30.2 25-34 pg Mean Corpuscular Hemoglobin Concent 35.7 35.0 32-36 g/dl Platelet Count 190 188 130-400 K/uL Mean Platelet Volume 10.0 10.2 7.4-10.4 fL Neutrophils (%) (Auto) 81.4 90.4 % Lymphocytes (%) (Auto) 11.1 5.8 % Monocytes (%) (Auto) 5.6 3.4 % Eosinophils (%) (Auto) 1.3 0.0 % Basophils (%) (Auto) 0.3 0.1 % Neutrophils # (Auto) 7.53 10.82 1.4-6.5 K/uL Lymphocytes # (Auto) 1.03 0.69 1.2-3.4 K/uL Monocytes # (Auto) 0.52 0.41 0.11-0.59 K/uL Eosinophils # (Auto) 0.12 0.00 0-0.5 K/uL Basophils # (Auto) 0.03 0.01 0-0.2 K/uL RDW Standard Deviation 42.2 42.8 36.4-46.3 fL RDW Coefficient of Variation 13.5 13.7 11.5-14.5 % Immature Granulocyte % (Auto) 0.3 0.3 % Immature Granulocyte # (Auto) 0.03 0.03 0.00-0.02 K/uL Prothrombin Time 10.8 9.0-12.0 SECONDS Prothromb Time International Ratio 1.0 0.9-1.1 Activated Partial Thromboplast Time 26.9 21.0-31.0 SECONDS Partial Thromboplastin Ratio 1.0 Sodium Level 137 136 136-145 mmol/L Potassium Level 4.0 4.4 3.5-5.1 mmol/L Chloride Level 105 106 98-107 mmol/L Carbon Dioxide Level 24 23 21-32 mmol/L Anion Gap 8.0 7.0 3-11 mmol/L Blood Urea Nitrogen 14 13 7-18 mg/dl Creatinine 1.27 1.18 0.60-1.40 mg/dl Est Creatinine Clear Calc Drug Dose 68.3 73.6 ml/min Estimated GFR () 68.7 75.1 Estimated GFR (Non- 59.3 64.8 BUN/Creatinine Ratio 10.9 10.9 10-20 Random Glucose 126 162 70-99 mg/dl Calcium Level 9.2 8.4 8.5-10.1 mg/dl Total Bilirubin 1.1 0.2-1 mg/dl Direct Bilirubin 0-0.2 mg/dl Aspartate Amino Transf (AST/SGOT) 15-37 U/L Alanine Aminotransferase (ALT/SGPT) 35 12-78 U/L Alkaline Phosphatase 111 45-117 U/L Total Protein 8.0 6.4-8.2 gm/dl Albumin 4.1 3.4-5.0 gm/dl Lipase 191 73-393 U/L Urine Color YELLOW Urine Appearance CLEAR CLEAR Urine pH >= 9.0 4.5-7.5 Urine Specific [place] 1.012 1.000-1.030 Urine Protein NEG NEG Urine Glucose (UA) NEG NEG Urine Ketones NEG NEG Urine Occult Blood 1+ NEG Urine Nitrite NEG NEG Urine Bilirubin NEG NEG Urine Urobilinogen NEG NEG Urine Leukocyte Esterase LARGE NEG Urine WBC (Auto) >30 0-5 /hpf Urine RBC (Auto) 5-10 0-4 /hpf Urine Hyaline Casts (Auto) 5-10 0-5 /lpf Urine Epithelial Cells (Auto) 0-5 0-5 /lpf Urine Bacteria (Auto) 4+ NEG Magnesium Level 1.8 1.8-2.4 mg/dl Microbiology Results 05/17/17 Urine Culture - Preliminary, Resulted Gram Negative Bacilli
[2017-05-18] MEDS ORDERED: TAMSULOSIN HCL 0.4 MG CAP PO SCH (21:00)
[2017-05-18] MEDS: ENOXAPARIN 40 MG/0.4 ML SYR SQ SCH (22:26)
[2017-05-19 07:02] VITALS: BP 106/57; PULSE 75; TEMP 36.9; O2SAT 93
[2017-05-19] MEDS: CEFTRIAXONE SOD INJ 1 GM in DEXTROSE 5% ADD-VANTAGE 50ML 50 ML IV SCH (08:03)
[2017-05-19] MEDS: ATORVASTATIN 40 MG TAB PO SCH (08:53)
--- NOTE | 2017-05-19 09:07 | Progress Note ---
Subjective Date of Service: May 19, 2017. Subjective Pt evaluation today including: conversation w/ patient, chart review, lab review Voiding: no voiding problems patient feels well. The dysuria ceased POD#1. The hematuria ceased. Hisurine culture is growing elizabeth senstitive klebsiella. This is same as last year so it might be that his stone is colonized ith the bacteria/ He has not had fevers. He has mild stent reflux , pain in left kidney with bladder urges. Problem List Medical Problems: (1) Right upper quadrant abdominal pain Status: Acute (2) Ureterolithiasis Status: Acute Review of Systems Constitutional: No fever, No chills Respiratory: No cough Cardiac: No chest pain Male : + urinary frequency Objective Vital Signs Date Time Temp Pulse Resp B/P (MAP) Pulse Ox O2 Delivery O2 Flow Rate FiO2 05/19/17 07:50 Room Air 05/19/17 07:02 36.9 75 16 106/57 (73) 93 Room Air 05/19/17 00:00 Room Air 05/18/17 23:10 37.0 75 16 120/62 (81) 93 Room Air 05/18/17 18:39 36.9 77 16 111/68 (82) 95 Room Air 05/18/17 16:01 36.5 80 16 107/63 (78) 94 Room Air 05/18/17 15:15 94 Room Air 05/18/17 11:47 36.8 82 14 110/72 (85) 95 Room Air Physical Exam General Appearance: WD/WN, no apparent distress ENT: hearing grossly normal Respiratory/Chest: no respiratory distress, no accessory muscle use Extremities: non-tender, normal inspection, no pedal edema Neurologic/Psychiatric: alert, normal mood/affect, oriented x 3 Skin: normal color, warm/dry, no rash Assessment and Plan left infected kidey stone now stented send molly on bactrim or cipro for one week course plan surgery sunday to remove stone.
[2017-05-19] MEDS ORDERED: CIPR-255 PO (11:32)
[2017-05-19] MEDS ORDERED: FLM4 PO (11:32)
--- NOTE | 2017-05-19 11:33 | Discharge Instructions ---
Discharge Instructions Date of Service May 19, 2017. Admission Reason for Admission: Complicated Uti Discharge Discharge Diagnosis / Problem: renal stone, complicated uti Discharge Goals Goal(s): Decrease discomfort Activity Recommendations Activity Limitations: resume your previous activity . Instructions / Follow-Up Instructions / Follow-Up FOLLOWUP WITH FAMILY DOCTOR ON May AT 11:15AM FOLLOWUP WITH UROLOGY NEXT WEEK SCHEDULED Current Hospital Diet Patient's current hospital diet: Regular Diet Discharge Diet Recommended Diet: Regular Diet Procedures Procedures Performed: Cystoscopy left stent placement Pending Studies Studies pending at discharge: no Medical Emergencies . Who to Call and When: Medical Emergencies: If at any time you feel your situation is an emergency, please call 911 immediately. . Non-Emergent Contact Non-Emergency issues call your: Primary Care Provider . . "Provider Documentation" section prepared by Marquez Dotson. . VTE Core Measure Inpt VTE Proph given/why not?: SCD's
[2017-05-19 11:52] VITALS: BP 106/57; PULSE 75; TEMP 36.9; O2SAT 93
--- NOTE | 2017-05-19 19:11 | Progress Note ---
Internal Med Progress Note Date of Service: May 19, 2017. Provider Documentation: SUBJECTIVE: resting comfortably no pain 'afebrile want to be discharged OBJECTIVE: Vital Signs-as noted below Exam: General-alert and oriented. Not in distress ENT-Normal hearing Neck-no neck masses Lungs-cta b/l no wheezing or crackles Heart-S1 and S2 heard regular rate and rhythm, no murmurs Abdomen-soft bowel sounds present no discomfort no distension Extremities-no edema no erythema Neuro-alert and awake moves extremities Lab data as noted below. ASSESSMENT & PLAN: This is a 66yo M with a PMH of prostate cancer (s/p prostatectomy in June 2016) , kidney stones and HLD who presents with L flank pain x 1 day. Complicated UTI 2/2 obstructing left ureteropelvic stone: CT abd/pelvis with presence of 1x1cm obstructive stone with mild hydronephrosis With moderate left perinephric infiltration on Rocephin on flomax s/p cystoscopy and stent placement cx growing elizabeth sensitive klebsiella discharged on cipro and flomax f/u with urology HLD: on statin discharged home Vital Signs: Date Time Temp Pulse Resp B/P (MAP) Pulse Ox O2 Delivery O2 Flow Rate FiO2 05/19/17 11:52 36.9 75 16 93 Room Air 05/19/17 07:50 Room Air 05/19/17 07:02 36.9 75 16 106/57 (73) 93 Room Air 05/19/17 00:00 Room Air 05/18/17 23:10 37.0 75 16 120/62 (81) 93 Room Air
--- NOTE | 2017-05-19 19:14 | Discharge Summary ---
Discharge Summary Date of Service May 19, 2017. Discharge Summary Admission Date: May 17, 2017 at 19:39 Discharge Date: May 19, 2017 Discharge Disposition: Home Principal Diagnosis: left renal colic s/p stent complicated uti Secondary Diagnoses/Problems: (1) Dyslipidemia Status: Chronic (2) Prostate cancer Permanent Comment: S/p prostatectomy in June 2016 at [facility] Status: Chronic Procedures: CT ABD/PELVIS: 1. 1 x 1 x 0.6 cm left ureteropelvic junction calculus which results in mild left hydronephrosis and moderate left perinephric infiltration. 2. 2 mm right renal calculus. 3. Status post interval prostatectomy. 6.7 x 3.8 cm water attenuation abnormality along the right anterior aspect of the bladder within the space of Retzius with mass effect upon the bladder. This is nonspecific but likely postsurgical and this may reflect a seroma or atypical location of a lymphocele. 4. Increase in size of a 3.5 cm lesion arising from the upper pole of the right kidney. This lesion is suboptimally assessed on this unenhanced exam although the appearance favors a cyst with possible thin septation. This can be assessed on subsequent exams. S/P CYSTOSCOPY AND STENT PLACEMENT Consultations: UROLOGY Medication Reconciliation New Medications: Ciprofloxacin Hcl (Cipro) 500 Mg Tab 500 MG PO BID for 6 Days, #12 TAB Tamsulosin HCl (Tamsulosin HCl) 0.4 Mg Cap 0.4 MG PO HS, #30 CAP Continued Medications: Atorvastatin (Lipitor) 40 Mg Tab 40 MG PO DAILY, TAB Oxybutynin Chloride (Oxybutynin Chloride ER) 10 Mg Tabcr 10 MG PO DIRECTED Potassium Citrate (Alkalinizer (Potassium Citrate ER) 1,080 Mg Tab 1 TAB PO QID for 90 Days, #360 TAB 3 Refills Admission Information HPI (per Admitting provider): This is a 66yo M with a PMH of prostate cancer (s/p prostatectomy in June 2016) , kidney stones and HLD who presents with L flank pain x 1 day. Patient states that he notices some suprapubic discomfort over the weekend that it resolved within an hour. Yesterday, patient endorses sudden onset 10/10 sharp pain in his L flank with associated nausea. One episode of dry heaving today. Tried taking oxycodone once but pain was not alleviated. Endorses frequent urination but denies hematuria, pyuria, oliguria. Has experienced increased urination ever since prostate was removed in June at [facility] in [place]. Follows with Dr. Woodward for urology. Denies fever, chills, lightheadedness, headache, visual changes, chest pain, SOB, diarrhea, constipation, LE swelling. Physical Exam (per Admitting): General Appearance: + moderate distress (Severe pain with movement. ) Head: normocephalic, atraumatic Eyes: normal inspection, PERRL, sclerae normal ENT: normal ENT inspection, hearing grossly normal, pharynx normal Neck: supple, thyroid normal, trachea midline Respiratory/Chest: chest non-tender, lungs clear, normal breath sounds, no respiratory distress, no accessory muscle use Cardiovascular: regular rate, rhythm, no murmur, normal peripheral pulses Abdomen/GI: soft, + tenderness (TTP of suprapubic area, L flank ) Back: + left CVA tenderness Extremities/Musculoskelatal: normal inspection, no calf tenderness, no pedal edema Neurologic/Psych: no motor/sensory deficits, alert, normal mood/affect, oriented x 3 Skin: normal color, warm/dry Hospital Course This is a 66yo M with a PMH of prostate cancer (s/p prostatectomy in June 2016) , kidney stones and HLD who presents with L flank pain x 1 day. Complicated UTI 2/2 obstructing left ureteropelvic stone: CT abd/pelvis with presence of 1x1cm obstructive stone with mild hydronephrosis With moderate left perinephric infiltration on Rocephin on flomax s/p cystoscopy and stent placement cx growing elizabeth sensitive klebsiella discharged on cipro and flomax f/u with urology HLD: on statin discharged home Total time spent on discharge = 35MINUTES This includes examination of the patient, discharge planning, medication reconciliation, and communication with other providers. Discharge Instructions Discharge Instructions Date of Service May 19, 2017. Admission Reason for Admission: Complicated Uti Discharge Discharge Diagnosis / Problem: renal stone, complicated uti Discharge Goals Goal(s): Decrease discomfort Activity Recommendations Activity Limitations: resume your previous activity . Instructions / Follow-Up Instructions / Follow-Up FOLLOWUP WITH FAMILY DOCTOR ON May AT 11:15AM FOLLOWUP WITH UROLOGY NEXT WEEK SCHEDULED Current Hospital Diet Patient's current hospital diet: Regular Diet Discharge Diet Recommended Diet: Regular Diet Procedures Procedures Performed: Cystoscopy left stent placement Pending Studies Studies pending at discharge: no Medical Emergencies . Who to Call and When: Medical Emergencies: If at any time you feel your situation is an emergency, please call 911 immediately. . Non-Emergent Contact Non-Emergency issues call your: Primary Care Provider . . "Provider Documentation" section prepared by Marquez Dotson. . VTE Core Measure Inpt VTE Proph given/why not?: SCD's
== END 2017-05-19 12:15 | disposition home or self-care (01) | DRG 694 ==
LOC: C.EDB 16:23 → C.MSN 19:39 → ENRESERV 19:52
PROVIDERS: ADMIT Internal Medicine; ATTEND Internal Medicine
PROC: 0T778DZ Dilation of Left Ureter with Intraluminal Device, Via Natural or Artificial Opening Endoscopic (ICD-10-PCS; principal; 2017-05-17 18:35)
DX: N13.2 Hydronephrosis with renal and ureteral calculous obstruction (principal); N39.0 Urinary tract infection, site not specified; E78.5 Hyperlipidemia, unspecified; Z79.899 Other long term (current) drug therapy; Z90.79 Acquired absence of other genital organ(s); Z85.46 Personal history of malignant neoplasm of prostate

== ENCOUNTER 2017-05-23 07:00 | Day surgery (SDC) | payer BC ==
[2017-05-22 13:35] VITALS: BMI 24.0
[~2017-05-23] VITALS: Ht 188 cm; Wt 85.0 kg
[~2017-05-23 07:00] MED LIST changes: +ATROPINE SULFATE 0.1 MG/ML 5ML SYR IV PRN; +CEFTRIAXONE SOD INJ 1000 MG in DEXTROSE 5% 50ML IV SCH; +CIPR-255 PO; +DTRSR/10 PO; +FENTANYL CITRATE INJ 50 MCG/1 ML 2 ML VIAL IV PRN; +FLM4 PO; +KETOROLAC TROMETHAMINE 30 MG/ML VIAL IV. PRN; +LABETALOL HCL IV 5 MG/ML 20ML IV PRN; +LACTATED RINGER'S 1000ML 1,000 ML IV SCH; +ONDANSETRON INJ 2 MG/ML 2 ML VIAL IV PRN
[2017-05-23 07:44] VITALS: BP 132/75; PULSE 79; TEMP 36.8; O2SAT 95; Ht 188 cm; Wt 85.0 kg
--- NOTE | 2017-05-23 08:11 | History and Physical ---
History & Physical Date May 23, 2017. Chief Complaint left ureteral stone with uti History of Present Illness The patient is a 66 year old male with a left ureteral stone with uti. He had an urgent stent last week due to UTI. We plan left stent exchange and ureteroscopy laser litho basket stone extraction today. His urine grew a [elizabeth sensitive e coli and he has been on culture specific antibiotics since. Past Medical/Surgical History Medical Problems: (1) Dyslipidemia (2) Prostate cancer Additional History Hepatic Disease: No Endocrine Disorder: No Kidney Disease: Yes Hypertension: No Heart Disease: No Bleeding Tendencies: No Infectious Diseases: Yes Allergies Coded Allergies: NO KNOWN DRUG ALLERGIES (Verified Allergy, Unknown, ., 05/23/17) Peanut (Verified Allergy, Unknown, Migraines, 05/23/17) Home Medications Scheduled Atorvastatin (Lipitor), 40 MG PO QAM Ciprofloxacin Hcl (Cipro), 500 MG PO BID Oxybutynin Chloride (Oxybutynin Chloride ER), 10 MG PO DIRECTED Potassium Citrate (Alkalinizer (Potassium Citrate ER), 1 TAB PO QID Tamsulosin HCl (Tamsulosin HCl), 0.4 MG PO HS Physical Examination Skin: warm/dry, no rash Eyes: normal inspection, sclerae normal ENT: normal ENT inspection Neck: no adenopathy Respiratory/Chest: lungs clear, normal breath sounds, no respiratory distress Cardiovascular: regular rate, rhythm, no edema Abdomen / GI: normal bowel sounds Extremities: normal inspection, normal range of motion Diagnosis left renal stone ASA Classification: ASA Class II Plan of Treatment plan left ureteroscopy laser lithotripsy basket stone extraction stent exchange. knee high [employer] specialist to OR ceftriaxone [employer] specialist
[2017-05-23] MEDS ORDERED: MIDAZOLAM HCL 1 MG/ML 2ML VIAL ONE (08:57)
[2017-05-23] MEDS ORDERED: FENTANYL CITRATE INJ 50 MCG/1 ML 2 ML VIAL ONE (08:57)
[2017-05-23] MEDS ORDERED: BELLADONNA/OPIUM SUPP 60 MG SUPP PR ONE ×2 (09:30→09:58)
[2017-05-23] MEDS ORDERED: LIDOCAINE HCL 2% 2 ML VIAL (20MG/ML) ONE (09:58)
[2017-05-23] MEDS ORDERED: METOCLOPRAMIDE HCL INJ 5 MG/ML 2 ML VIAL ONE (09:58)
[2017-05-23] MEDS ORDERED: ONDANSETRON INJ 2 MG/ML 2 ML VIAL ONE (09:58)
[2017-05-23] MEDS ORDERED: PROPOFOL IV EMULSION 10 MG/ML 20 ML VIAL IV ONE (09:58)
--- NOTE | 2017-05-23 10:13 | DIAGNOSTIC IMAGING REPORT ---
KUB CLINICAL HISTORY: LT CYSTO/LASER/STENT stent placement TECHNIQUE: Image intensifier COMPARISON STUDY: None FINDINGS: 3 images are submitted. These show placement of a guidewire followed by placement of a left ureteral stent. Stent appears to be in good position. IMPRESSION: Intraoperative images for a left laser lithotripsy and stent placement The above report was generated using voice recognition software. It may contain grammatical, syntax or spelling errors. Electronically signed by: Chris Saldana M.D. 05/23/2017 10:11 AM Dictated Date/Time: 05/23/2017 10:10 AM
--- NOTE | 2017-05-23 10:19 | [facility] Operative Report ---
Operative Report Operative Date May 23, 2017. Pre-Operative Diagnosis left renal stone with uti Post-Operative Diagnosis left renal stone with uti Procedure(s) Performed Cystoscopy, Left Ureteroscopy, Laser Lithotripy, Basket Stone Extraction; Stent Exchange Surgeon Dr. [facility] Manager Surgeon(s) None Estimated Blood Loss 2 ml Findings radio-opaque left renal stone Fluids 700 Specimens Permanent Specimen A: Left Renal stone for analysis Drains 6 fr 26 centimeter double j stent Anesthesia Type General Complication(s) none Disposition Recovery Room / PACU Indications uti and left ureteral stone urgently stented last week. He has a elizabeth sensitive Klebsiella and has been on culture specific antibiotics since 05/18/17. We plan to remove stone and exchange stent today. Description of Procedure Patient was given general LMA anesthesia and placed in lithotomy position. His genitals were prepped and draped in sterile fashion. Time out held with team. I placed a 21 fr rigid cystoscope to bladder. The urethra is unremarkable. The prostate is surgically absent. The UOs are close to bladder neck. There is a moderate amount of biofilm on the stent. I grasped stent tip and with marci to the meatus. I placed a stiff wire up left ureter via stent to the kidney. I removed stent and found it to be intact. I then placed a sheath to pass a second wire. I then passed a 12 Fr 36 centimeter ureteral access sheath to the left upper ureter easily. I placed a flexible ureteroscope into the left kidney. The stone is in an upper pole infundibulum. I used a 200 micron holmium laser fiber to break the stone into over 2 dozen pieces. I then carefully used a 2.4 fr tipless basket to remove all but the tiniest fragment. On fluoro on more stone is seen. I then removed scope and sheath. I placed a 26 centimeter 6 Fr double J stent easily. There is brisk efflux after placement. I placed a belladonna and opium suppository for post-op pain. He transferred to recovery under my escort, in stable condition. Plan: Home today Pyridium for dysuria x 3 days flomax daily oral pain meds as needed finish oral antibiotics ASA 2 clean contaminated case 7 seconds fluoro ceftriaxone antibiotic test consultant I attest to the content of the Intraoperative Record and any orders documented therein. Any exceptions are noted below.
[2017-05-23] MEDS ORDERED: PHEN-775 PO (10:21)
[2017-05-23] MEDS ORDERED: OXYC-57 PO (10:21)
[2017-05-23] MEDS ORDERED: PHENAZOPYRIDINE HCL 200 MG TAB PO STA (10:23)
--- NOTE | 2017-05-23 10:23 | Discharge Instructions ---
Discharge Instructions Date of Service May 23, 2017. Admission Reason for Admission: Left Renal Stone, Uti Discharge Discharge Diagnosis / Problem: left renal stone and uti Discharge Goals Goal(s): Decrease discomfort, Improve disease control Activity Recommendations Activity Limitations: resume your previous activity Lifting Limitations: none Exercise/Sports Limitations: none May Resume Sexual Activity: when tolerated Shower/Bathe: no limitations Driving or Machine Use: resume 1 day after discharge . Instructions / Follow-Up Instructions / Follow-Up drink extra fluids next 3 days urine will be bloody a few days use pyridium prn burning use flomax daily until stent removed use ibuprofen 600-800mg every 8 hours with food for next 2-3 days use narcotic in addition to ibuprofen as needed for breakthrough pain. If using narcotic regularly, need to take a laxative to avoid constipation. Current Hospital Diet Patient's current hospital diet: Discharge Diet Recommended Diet: Regular Diet Fluid Restriction: None Procedures Procedures Performed: Cystoscopy, Left Ureteroscopy, Laser Lithotripy, Basket Stone Extraction; Stent Exchange Pending Studies Studies pending at discharge: no Medical Emergencies . Who to Call and When: Medical Emergencies: If at any time you feel your situation is an emergency, please call 911 immediately. . Non-Emergent Contact Non-Emergency issues call your: Urologist ([phone]) Call Non-Emergent contact if: temperature is above 100.5, your pain is not controlled . . "Provider Documentation" section prepared by Melody Woodward. . VTE Core Measure Inpt VTE Proph given/why not?: SCD's [place] Drug Monitoring Program Search Results: patient reviewed within database, no issues identified
[2017-05-23] MEDS ORDERED: PHENAZOPYRIDINE HOME PACK 200 MG VIAL PO ONE (10:30)
[2017-05-23 10:58] VITALS: BP 129/67; PULSE 73; TEMP 36.5; O2SAT 94
[2017-05-23 11:28] VITALS: BP 120/63; PULSE 70; TEMP 36.3; O2SAT 92
--- NOTE | 2017-05-23 11:34 | Anesthesiology Progress Note ---
Anesthesia Post Op Note Date & Time May 23, 2017 at 11:34 Vital Signs Vital Signs Past 12 Hours Date Time Temp Pulse Resp B/P (MAP) Pulse Ox O2 Delivery O2 Flow Rate FiO2 05/23/17 10:50 36.5 74 12 128/74 93 Room Air 05/23/17 10:40 83 28 104/87 90 Room Air 05/23/17 10:30 74 15 116/77 99 Oxymask 10 05/23/17 10:20 82 18 123/72 98 Oxymask 10 05/23/17 10:14 36.5 86 16 122/79 98 Oxymask 10 05/23/17 07:44 36.8 79 18 132/75 (94) 95 Room Air Notes Mental Status: alert / awake / arousable, participated in evaluation Pt Amnestic to Procedure: Yes Nausea / Vomiting: adequately controlled Pain: adequately controlled Airway Patency, RR, SpO2: stable & adequate BP & HR: stable & adequate Hydration State: stable & adequate Anesthetic Complications: no major complications apparent
[2017-05-23 12:00] VITALS: BP 121/63; PULSE 65; TEMP 36.4; O2SAT 95
== END 2017-05-23 12:16 | disposition home or self-care (01) ==
LOC: C.ACU 07:00
PROVIDERS: ATTEND Urology
DX: N20.0 Calculus of kidney (principal); E78.5 Hyperlipidemia, unspecified; Z85.46 Personal history of malignant neoplasm of prostate; Z79.899 Other long term (current) drug therapy